=== PATIENT | male | born 1990 | race Caucasian/White ===

== ENCOUNTER 2021-08-12 12:34 | Emergency (ER) | payer SELFPAY ==
[2021-08-12 12:47] VITALS: BP 130/84; PULSE 87; RESP 18; TEMP 37.1; O2SAT 97
--- NOTE | 2021-08-12 12:50 | ED.URI ---
HPI - URI/Sore Throat General Chief Complaint: Upper Respiratory Infection Stated Complaint: Headache,Sinus pressure Time Seen by Provider: 08/12/21 12:57 Source: patient Mode of arrival: ambulatory Limitations: no limitations History of Present Illness HPI Narrative: Alden Angel is a 30 yo male with no PMH who has had headache and sinus congestion for up to 1 week. Has taken [employer] sinus medicine and ibuprofen and Tylenol. no fever, no sob, no loss of taste or smell. Related Data Allergies Allergy/AdvReac Type Severity Reaction Status Date / Time Sulfa (Sulfonamide AdvReac Intermediate abdominal Verified 08/12/21 12:37 Antibiotics) pain Review of Systems Review of Systems: CONSTITUTIONAL: Denies fever, chills, sweats. EYES: Denies visual changes, redness, discharge. ENT: Denies rhinorrhea, has congestion, sore throat, otalgia. Complaining of headache CARDIOVASCULAR: Denies chest pain, palpitations, edema. RESPIRATORY: Denies dyspnea, wheezing, cough GASTROINTESTINAL: Denies abdominal pain, nausea, vomiting, diarrhea. GENITOURINARY: Denies dysuria, hematuria, abnormal discharge SKIN: Denies rash or itching. NEUROLOGIC: Denies numbness, or focal weakness. PSYCHIATRIC: Denies anxiety or depression. [facility] Family History Family History (Updated 08/12/21 @ 13:36 by Steph Paul CNP) Father , Diet age 48 of [place] High cholesterol Other Hypertension Social History Social History (Updated 08/12/21 @ 13:36 by Steph Paul CNP) Smoking packs per day: 1 Smoking cigarettes per day: 20.0 Smoking status: Heavy tobacco smoker Alcohol intake: current Comments At time of signature, I agree with nursing past medical, surgical, social and family history. There is no relevant family history pertinent to the presenting complaint. Exam Narrative: GENERAL: This is a well-nourished, well-developed patient, in mild distress. HEAD: normocephalic, atraumatic. EYES: Sclera clear/white. Vision is grossly intact. EARS: External ears normal, auditory canals c erythema and without drainage, TMs without perforation. Hearing grossly intact. NOSE: External nose normal without nasal discharge, nares with redness, as rhinorrhea. THROAT: Mucous membranes moist, posterior pharynx mild erythema NECK: Neck supple, non-tender CARDIOVASCULAR: Regular rate and rhythm without murmurs, gallops, or rubs. RESPIRATORY: Clear to auscultation. Breath sounds equal bilaterally. No wheezes, rales, or rhonchi. GASTROINTESTINAL: Abdomen soft, SKIN: warm, intact with no suspicious lesions or rash, good texture and turgor. NEURO: awake, alert, and oriented to person, place and time. There were no obvious focal neurologic abnormalities. Steady gait EXTREMITIES: Normal range of motion. BACK: Nontender without deformity Course Course Emergency Course: Patient states has had a headache and runny nose for a week has not taken anything other than [id number] [employer] sinus medication and has also not going to work denies fever or sore throat Covid PCR done Patient quarantined until results are obtained and started on steroids and Mucinex Vital Signs Vital signs: Vital Signs Temperature 98.7 F 08/12/21 12:47 Pulse Rate 87 08/12/21 12:47 Respiratory Rate 18 08/12/21 12:47 Blood Pressure 130/84 08/12/21 12:47 Pulse Oximetry 97 08/12/21 12:47 Temperature 98.7 F 08/12/21 12:47 Pulse Rate 87 08/12/21 12:47 Respiratory Rate 18 08/12/21 12:47 Blood Pressure 130/84 08/12/21 12:47 Pulse Oximetry 97 08/12/21 12:47 MDM - URI/Sore Throat Differential Diagnosis Differential diagnosis: Likely upper respiratory infection, sinusitis, viral infection, influenza, pharyngitis and other Critical Care Time Critical Care Time Critical Care Time: No Discharge Plan Discharge Clinical Impression: Suspected 2019-nCoV infection Upper respiratory infection Qualifiers: URI type: unspecified v
[2021-08-14 18:39] LABS: SARS-CoV-2 RNA PCR Negative
== END 2021-08-12 13:20 | disposition home or self-care (01) ==
PROVIDERS: Emergency Provider Nurse Practitioner
DX: J06.9 Acute upper respiratory infection, unspecified (principal); Z20.822 Contact with and (suspected) exposure to COVID-19; F17.210 Nicotine dependence, cigarettes, uncomplicated
CPT/HCPCS: 99213; C9803; G0463; U0003; U0005

== ENCOUNTER 2023-04-13 08:58 | Emergency (ER) | payer SELFPAY ==
[2023-04-13 09:01] VITALS: BP 138/94; PULSE 68; RESP 18; TEMP 37.1; O2SAT 99
--- NOTE | 2023-04-13 09:19 | ED.SKABFB ---
HPI - Skin/Abscess/Foreign Bdy General Chief complaint: Extremity Injury, Upper Stated complaint: L. shoulder pain and rash Time Seen by Provider: 04/13/23 09:03 History of Present Illness HPI narrative: 32-year-old male presents to the emergency room today for complaints of left shoulder pain and rash. He says that the pain started about a week ago in his left shoulder with no history of trauma. He can move his arm normally but describes the pain as an aching in the joint. He started to have a rash to his left shoulder and upper arm on Saturday. He went to see his primary care provider and was prescribed Valtrex and gabapentin. The patient says that she told him that it was a virus but did not tell him exactly what it was. Patient reports that the rash has continued to spread further down his arm and he continues to have increased pain without relief. Related Data Allergies Allergy/AdvReac Type Severity Reaction Status Date / Time Sulfa (Sulfonamide AdvReac Intermediate abdominal Verified 08/12/21 12:37 Antibiotics) pain Review of Systems Review of Systems: CONSTITUTIONAL: Denies fever, chills, or sweats. EYES: Denies visual changes, redness, or discharge. ENT: Denies rhinorrhea, congestion, sore throat, or otalgia. CARDIOVASCULAR: Denies chest pain, palpitations, or edema. RESPIRATORY: Denies cough or dyspnea. GASTROINTESTINAL: Denies abdominal pain, nausea, vomiting, or diarrhea. GENITOURINARY: Denies dysuria or hematuria. SKIN: Rash to left shoulder and left upper arm MUSCULOSKELETAL: Left shoulder pain NEUROLOGIC: Denies headache, numbness, dizziness, or weakness. PSYCHIATRIC: Denies anxiety or depression. [facility] Past Medical History Medical History Thrombophlebitis arm Family History Family History Father , Diet age 48 of [place] High cholesterol Other Hypertension Social History Social History Smoking packs per day: 1 Smoking cigarettes per day: 20.0 Smoking status: Heavy tobacco smoker Alcohol intake: current Exam Narrative: GENERAL: Well-appearing, well-nourished, and in no acute distress. HEAD: Normocephalic, atraumatic. NECK: Supple. No adenopathy or masses. No carotid bruits or JVD CHEST: Clear to auscultation. No respiratory distress. No wheezes rales or rhonchi HEART: Regular rate and rhythm. No murmur heard. Normal peripheral pulses. ABDOMEN: Soft, nontender, nondistended, normal active bowel sounds. EXTREMITIES: Normal range of motion. No edema. SKIN: Vesicular rash appearing in patches that starts at the left posterior neck and follows the dermatome down the shoulder and left upper arm. Vesicles are clustered on an erythematous base. NEURO: No focal deficits. Alert and oriented x3. PSYCH: Normal mood and affect. Course Vital Signs Vital signs: Vital Signs Temperature 37.1 C 04/13/23 09:01 Pulse Rate 68 04/13/23 09:01 Respiratory Rate 18 04/13/23 09:01 Blood Pressure 138/94 H 04/13/23 09:01 Pulse Oximetry 99 04/13/23 09:01 Oxygen Delivery Room Air 04/13/23 09:01 Temperature 37.1 C 04/13/23 09:01 Pulse Rate 68 04/13/23 09:01 Respiratory Rate 18 04/13/23 09:01 Blood Pressure 138/94 H 04/13/23 09:01 Pulse Oximetry 99 04/13/23 09:01 Oxygen Delivery Room Air 04/13/23 09:01 MDM - Skin/Abscess/Foreign Bdy MDM Narrative Medical decision making narrative: Diagnosis apparent on exam. No additional work up needed. Discharge Plan Discharge Clinical Impression: Shingles Qualifiers: Herpes zoster complications: without complications Qualified Code(s): B02.9 - Zoster without complications Patient Disposition: Home, Self-Care Condition: Stable Instructions: Antibiotic Form, Shingles (ED) Additional Instructions: Finish course of
== END 2023-04-13 09:46 | disposition home or self-care (01) ==
LOC: ANHED 09:27
PROVIDERS: Emergency Provider Nurse Practitioner Family
DX: B02.9 Zoster without complications (principal); F17.210 Nicotine dependence, cigarettes, uncomplicated
CPT/HCPCS: 99283